=== PATIENT | female | born 1935 ===

== ENCOUNTER 2019-07-02 16:15 | Outpatient (CLI) | payer MEDICARE ==
--- NOTE | 2019-07-02 17:08 | RAD ---
XR BONE SURVEY ADULT STANDARD: 07/02/19 HISTORY: Multiple myeloma. FINDINGS/IMPRESSION: Radiographs of the skull, cervical spine, thoracic spine, lumbar spine, arms, forearms, thighs and le gs were obtained. Multiple lytic lesions consistent with multiple myeloma is seen in the skull and the left humerus. Th ere is a lucency in the body of L4 which most likely represents overlying bowel gas. There is grade I anterolisthesis of L4 over L5. There are degenerative changes in the spine. There ar e postop changes and metallic hardware in the distal right radius. Questionable lucencies are also seen in the right proximal femur. POS: KIAH
== END 2019-07-02 16:16 | disposition home or self-care (01) ==
LOC: BICRAD 16:15
PROVIDERS: ATTEND Internal Medicine Hematology & Oncology
DX: C90.01 Multiple myeloma in remission (principal)
CPT/HCPCS: 77075

== ENCOUNTER 2019-07-27 10:43 | Outpatient (CLI) | payer MEDICARE ==
--- NOTE | 2019-07-30 15:02 | RAD ---
Modified Barium Swallow CLINICAL HISTORY: Dysphagia, oropharyngeal phase; feeding difficulties FINDINGS: The examination is performed under real-time fluoroscopy under guidance of the speech ther apy department. Total fluoroscopic time was 14 seconds. There are 4 separate episodes of flash tracheal penetration with thin barium liquids. No episodes of tracheal aspiration were demonstrated. IMPRESSION: Episodes of tracheal penetration with thin barium liquids only. No episodes of tracheal a spiration. Reference speech pathology report for further details.
== END 2019-07-27 10:44 | disposition home or self-care (01) ==
PROVIDERS: ATTEND Family Medicine
DX: R13.12 Dysphagia, oropharyngeal phase (principal); R63.3 Feeding difficulties
CPT/HCPCS: 74230

== ENCOUNTER 2020-06-12 05:47 | Inpatient (IN) | payer MEDICARE ==
[2020-06-12 06:08] LABS: #Basophils 0.1 thou/uL (0.0-0.2); #Lymphocytes 1.3 thou/uL (1.20-3.40); #Monocytes 0.5 thou/uL (0.11-0.59); #Neutrophils 7.8 thou/uL (1.40-6.50); %Basophils 0.9 % (0.0-1.0); %Eosinophils 0.5 % (0.0-10.0); %Lymphocytes 13.2 % (21.0-51.0); %Monocytes 5.3 % (0.0-10.0); %Neutrophils 80.1 % (42.0-75.0); Hemoglobin 11.3 g/dL (12.0-16.0); Mean Corpuscular HGB CONC 33.5 g/dL (32.0-36.0); Mean Corpuscular Hemoglobin 32.8 pg (27.0-31.0); Mean Corpuscular Volume 97.8 fL (78.0-98.0); Mean Platelet Volume 7.5 fL (7.4-10.4); Platelet Count 218 thou/uL (130-400); RBC Distribution Width 14.9 % (11.5-14.5); Red Blood Cell (RBC) Count 3.43 mill/uL (4.20-5.40); White Blood Cell (WBC) Count 9.8 thou/uL (4.8-10.8)
[2020-06-12] MEDS ORDERED: Midazolam HCl 5 mg/ml Vial ONE (06:11)
[2020-06-12] MEDS ORDERED: fentaNYL Citrate/PF 2,000 MCG in Sodium Chloride 0.9% 60 ML IV SCH ×2 (06:15→09:00)
[2020-06-12 06:26] LABS: Anion Gap 18 mmol/L (10-20); BUN (Urea Nitrogen) 46 mg/dL (9.8-20.1); Calc. Creatinine Clearance 0 mL/min (70-130); Carbon Dioxide 14 mmol/L (23-31); Chloride 112 mmol/L (98-107); Estimated GFR-MDRD 54; Potassium 4.2 mmol/L (3.5-5.1); Sodium 140 mmol/L (136-145)
[2020-06-12 06:27] LABS: ALT (SGPT) 24 U/L (8-55); AST (SGOT) 24 U/L (5-34); Albumin 3.1 g/dL (3.4-4.8); Alkaline Phosphatase 42 U/L (40-110); Bilirubin, Total 0.7 mg/dL (0.2-1.2); Calcium 7.9 mg/dL (7.8-10.44); Glucose 135 mg/dL (83-110); Protein, Total 6.1 g/dL (6.0-8.3)
[2020-06-12 06:43] LABS: PTT 24.4 sec (22.9-36.1)
[2020-06-12 06:44] LABS: INR-International Normal Ratio 1.2; Prothrombin Time 14.9 sec (12.0-14.7)
[2020-06-12 06:53] LABS: CKMB 1.1 ng/mL (0-6.6)
[2020-06-12 07:12] LABS: Bacteria/HPF None Seen HPF (None Seen); Bilirubin Negative (Negative); Blood, Urine 1+ (Negative); Clarity Clear (Clear); Glucose, Urine (Dipstick) Normal (Negative); Ketone, Urine Negative (Negative); Leukocyte Negative Leu/uL (Negative); Nitrite Negative (Negative); Protein, Urine (Dipstick) 30 mg/dL (Neg-Trace); Specific Gravity, Urine 1.017 (1.002-1.036); Squamous Epithelial None Seen HPF (0-3); Urobilinogen Normal mg/dL (Less than 2); WBC/HPF 0-3 HPF (0-3); pH, Urine 6.5 (5.0-9.0)
[2020-06-12] MEDS ORDERED: Vancomycin 1 GM/200 ML BAG ONE (07:18)
[2020-06-12] MEDS ORDERED: Cefepime 2 GM VIAL ONE (07:18)
--- NOTE | 2020-06-12 07:25 | CT ---
Brain CT without IV contrast: Emergency after exam 6:36 AM 06/12/2020 This a final report Atrophy and chronic white matter ischemic change without mass or bleed. Multiple circumscribed lucencies within the skull with malignant or hematologic possibilities certain ly of concern This report agrees with the preliminary report.
[2020-06-12] MEDS ORDERED: Propofol 1,000 MG/100 ML VIAL IV ONE (07:41)
--- NOTE | 2020-06-12 07:56 | RAD ---
Chest one view HISTORY: Chest pain. COMPARISON: 01/14/2012. FINDINGS: Cardiac silhouette is magnified by projection. Pulmonary vasculature is unremarkable. Mediastinum is midline. Tip of an endotracheal catheter is at the level of the clavicular heads. Naso gastric tube descends to the stomach. Calcification within the aorta. Lungs are hyperinflated. Vertically oriented linear opacity at each apex favored to represent parench ymal scarring. No lobar consolidation or evidence of pneumothorax. Defibrillator patch overlies the right chest and left upper quadrant abdomen. IMPRESSION : Endotracheal catheter and nasogastric tube in good radiographic position. Pulmonary hyperinflation. No acute process is apparent. Atherosclerosis.
[2020-06-12 07:58] LABS: SARS-CoV-2 NAA Rapid Test Not Detected (NotDetected)
[2020-06-12] MEDS ORDERED: Propofol 1,000 MG/100 ML VIAL IV PRN (09:00)
[2020-06-12] MEDS ORDERED: Propofol BOLUS 1,000 MG/100 ML VIAL IV PRN (09:00)
[2020-06-12] MEDS ORDERED: Fentanyl BOLUS 250 ML IVPB PRN (09:00)
[2020-06-12] MEDS ORDERED: Lorazepam 2 MG/ML VIAL SLOW IVP PRN (09:00)
[2020-06-12] MEDS ORDERED: DISCONTINUE PREVIOUS NARCOTIC PAIN MEDICATIONS AND BENZODIAZEPINES FS SCH (09:00)
[2020-06-12] MEDS ORDERED: Morphine 2 MG/ML VIAL SLOW IVP PRN (09:00)
[2020-06-12] MEDS ORDERED: Dextrose 5 % And 0.9 % NaCl 1,000 ML IV SCH (09:00)
[2020-06-12] MEDS ORDERED: Nitroglycerin 0.4 MG TAB (25 Tab Bottle) SL PRN (09:09)
[2020-06-12] MEDS ORDERED: Dextrose 5% in Water 1,000 ML IV PRN (09:11)
[2020-06-12] MEDS ORDERED: Dextrose 50% Abboject 50 ML SYRINGE SLOW IVP PRN (09:11)
[2020-06-12] MEDS ORDERED: Mag-Al 1200 mg/1200 mg/30 ML UDCUP PO PRN (09:12)
[2020-06-12] MEDS ORDERED: Milk Of Magnesia 30 ML UDCUP PO PRN (09:12)
[2020-06-12] MEDS ORDERED: Bisacodyl 10 MG SUPP PR PRN (09:12)
[2020-06-12] MEDS ORDERED: Ventilator Sedation Protocol 1 EACH FS SCH (09:15)
[2020-06-12] MEDS ORDERED: Sodium Bicarbonate 150 MEQ in Dextrose 5% in Water 1,000 ML IV SCH (09:15)
[2020-06-12] MEDS ORDERED: Vancomycin 1 GM in Premix Bag 1 BAG IVPB SCH (09:15)
[2020-06-12] MEDS ORDERED: Enoxaparin Sodium 40 MG/0.4 ML SYRINGE SC SCH (09:15)
--- NOTE | 2020-06-12 09:36 | CON ---
DATE OF CONSULTATION: HISTORY: Ms. Barton is an 85-year-old female who was brought in to the hospital by her via EMS after she was found down at home. She apparently was appropriate 10 minutes prior to the event when he found her in the bathroom, found down. She eventually intubated. She has known history of dementia, according to the . Reviewed some old medical records with the patient. PAST MEDICAL HISTORY: Hypertension, hypothyroidism. PREVIOUS SURGERIES: Cholecystectomy, wrist surgery, cataract surgery. ALLERGIES: PENICILLIN. MEDICINE: Unknown at this stage. PHYSICAL EXAMINATION: GENERAL: is en-route, will be talking to the at length. VITAL SIGNS: Pulse 83, blood pressure 130/80, sats 100%, respirations 17. CHEST: No wheezing. No crackles. CARDIAC: Normal S1, S2. No masses. LABORATORY DATA: White count 9000, H and H 11/33, platelet count 218. Lytes are normal. Urine is unremarkable. Chest x-ray was normal. CT head normal. Coronavirus serology was negative. IMPRESSION: 1. Found down. Encephalopathy, rule out cerebrovascular accident. 2. Respiratory failure. 3. History of dementia. PLAN: We will try and get additional history from the as he arrives. Serial exam input from Neurology are recommended. Basic support. 45 minutes critical time. Job ID: [id number]
[2020-06-12] MEDS ORDERED: Acetaminophen 650 MG Suppository PR PRN (11:03)
[2020-06-12] MEDS ORDERED: Acetaminophen 650 MG/20.3 ML UDCUP PO PRN (11:05)
[2020-06-12 11:16] LABS: Acetaminophen Less than 6.0 mcg/mL (10.0-30.0); Alcohol Less than 10 mg/dL (Less than 10); Salicylate Less than 8.0 mg/dL (15.0-30.0)
[2020-06-12 11:17] LABS: Amphetamine Not Detected (NotDetected); Barbiturates Screen Not Detected (NotDetected); Benzodiazepine Screen Not Detected (NotDetected); Cocaine Metabolite Screen Not Detected (NotDetected); Medtox Control Line Valid? VALID (VALID); Medtox Reader # READER 4; Methadone Not Detected (NotDetected); Methamphetamine Not Detected (NotDetected); Opiate Screen Not Detected (NotDetected); Oxycodone Screen Not Detected (NotDetected); Phencyclidine (PCP) Not Detected (NotDetected); THC/Cannabinoid Screen Not Detected (NotDetected); Tricyclic Screen Not Detected (NotDetected)
[2020-06-12 11:19] LABS: Lactic Acid 2.7 mmol/L (0.5-2.2)
[2020-06-12 11:30] LABS: Anion Gap 17 mmol/L (10-20); BUN (Urea Nitrogen) 41 mg/dL (9.8-20.1); Calc. Creatinine Clearance 41 mL/min (70-130); Calcium 7.8 mg/dL (7.8-10.44); Carbon Dioxide 14 mmol/L (23-31); Chloride 111 mmol/L (98-107); Estimated GFR-MDRD 61; Glucose 100 mg/dL (83-110); Sodium 138 mmol/L (136-145)
[2020-06-12 11:31] LABS: CK (CPK) 95 U/L (29-168); CRP (Inflammatory) 1.12 mg/dL (= or < 0.5); Lipase 56 U/L (8-78); Magnesium 2.6 mg/dL (1.6-2.6); Phosphorus 2.5 mg/dL (2.3-4.7)
[2020-06-12 11:43] LABS: CKMB 3.4 ng/mL (0-6.6)
[2020-06-12 12:16] LABS: Thyroid Stimulating Hormone 0.7634 uIU/mL (0.35-4.94)
[2020-06-12] MEDS ORDERED: Aspirin 325 MG TAB PER TUBE SCH (12:45)
[2020-06-12] MEDS ORDERED: hydrALAZINE 20 MG/ML VIAL SLOW IVP PRN (13:01)
[2020-06-12] MEDS: Sodium Bicarbonate 150 MEQ in Dextrose 5% in Water 1,000 ML IV SCH (13:55)
--- NOTE | 2020-06-12 14:31 | CON ---
DATE OF CONSULTATION: 06/12/2020 CONSULTING PHYSICIAN: Hospitalist Services. IMPRESSION: 1. Probable stroke with left-sided paralysis. 2. Possible seizure, unwitnessed. PLAN: 1. Continue aspirin. 2. MRI of the brain and MRA of the carotids tomorrow. 3. Monitor for further seizure activity. HISTORY OF PRESENT ILLNESS: Ms. Barton is an 85-year-old woman with past history of multiple myeloma. She also has a history of dementia. Her found her on the floor unresponsive with snoring respirations. He called EMS and had her brought to the emergency room. Initial CT scan of the brain showed some lytic lesions in the skull, but the brain otherwise looked unremarkable. Her lab work was only remarkable for elevated lactic acid. Prolactin was not done. The patient has been intubated and placed on ventilatory support. She has been moved to the intensive care unit. No further unusual activity has occurred. The patient started to regain consciousness. Her denies any past history of strokes or seizures. PAST HISTORY: Multiple myeloma. ALLERGIES: PENICILLIN. SOCIAL HISTORY: She lives at home with her . She is fairly independent. She does not smoke or drink. FAMILY HISTORY: Noncontributory. REVIEW OF SYSTEMS: Could not be obtained due to her lack of responsiveness. MEDICATIONS: List was reviewed. PHYSICAL EXAMINATION: GENERAL: She is a reasonably well-nourished elderly lady, lying in bed quietly. HEENT: Pupils are equal. Conjunctivae are clear. Eyes are conjugate. She is orally intubated. Cranium, normocephalic and atraumatic. NECK: Supple. No lymphadenopathy noted. CHEST: Clear. ABDOMEN: Soft. EXTREMITIES: No cyanosis or edema. SKIN: Clear. NEUROLOGIC: She would open her eyes to stimulation, but would not follow any commands. Her doll's eye maneuver was intact. There was no obvious facial asymmetry. There was reduced movement of the left arm and leg. Her plantar response was upgoing on the left and equivocal on the right. She responded to stimulation bilaterally. LABORATORY DATA: EKG shows a sinus rhythm. SUMMARY: It is an elderly lady who presented in unresponsive state with an elevated lactic acid. She appears to have a left hemiparesis, bit suspicious she may have had a stroke with a secondary seizure. Aspirin has been started. Her workup can continue. Job ID: [id number]
--- NOTE | 2020-06-12 15:33 | PDOC.HHP ---
Hospitalist HPI - History of Present Illness Altered mentation History of Present Illness: Patient is a 85-year-old female with dementia, hypertension and multiple myeloma in the past was brought in to the emergency room around 6 AM with unresponsiveness. Patient was found unresponsive in the bathroom. called 911. Patient was at baseline 10 minutes prior to this event. Her GCS was 3 with poor respiratory effort. She did not respond to Narcan. She was subsequently intubated after ER arrival due to worsening mentation. She also received empiric antibiotics in the emergency room. History is limited due to current mentation. Medical History: Multiple myeloma not having achieved remission, Essential hypertension, Acquired hypothyroidism. Surgical History: Cholecystectomy 02/2006. Hospitalization/Major Diagnostic Procedure: pleurisy 1967. Family History: Father: , Alzheimer's, diagnosed with Mental Illness. Mother: . Siblings: alive. Children: alive. 1 son(s) , 1 daughter(s) - healthy. . Social History: [employer]: Smoking Are you a: Non-Smoker No Alcohol . No Drugs . No Sexual activity . No Occupation, Retired. Marital status: . Caffeine use: Yes, 1-2 cups, Coffee. ED Course: MEDICATION ADMINISTRATION SUMMARY [place] Jun 12, 2020 15:32 Drug Name Dose Ordered Route Status Time *vancomycin intravenous 1 g IV Piggy Back Given 07:57 06/12/2020 *Diprivan 5 mcg/kg/min IV Fluid Infusion Given 07:45 06/12/2020 cefepime injection 2 g IV Piggy Back Given 07:15 06/12/2020 *fentaNYL (PF) injection 1 mcg/kg/hr IV Fluid Infusion Given 06:55 06/12/2020 Versed injection 4 mg IV Push Given 06:14 06/12/2020 *succinylcholine-sod Cl,iso(PF) 100 mg IV Push Given 05:52 06/12/2020 *Amidate 20 mg IV Push Given 05:51 06/12/2020 VITAL SIGNS [place] Jun 12, 2020 05:50 JORDY Miguel Jordan BP: 157/107, MAP: 123, Pulse: 100, Resp: 15, Temp: 98.3 (Rectal), Pain: UTR, O2 sat: 100 on (Bag Valve Mask), Time: 06/12/2020 05:50. Hospitalist ROS - Review of Systems ROS unobtainable: due to endotracheal tube - Medication Medications: Medication Instructions Recorded Confirmed Type Donepezil HCl [Aricept] 10 mg PO HS 06/12/20 06/12/20 History Levothyroxine Sodium [Synthroid] 50 mcg PO DAILY 06/12/20 06/12/20 History Meloxicam 15 mg PO DAILY 06/12/20 06/12/20 History Melphalan 2 mg PO 06/12/20 History Potassium Chloride [Klor-Con 10] 10 meq PO BID 06/12/20 06/12/20 History Valsartan [Diovan] 80 mg PO DAILY 06/12/20 06/12/20 History predniSONE 20 mg PO BID-WM 06/12/20 06/12/20 History Allergies Penicillins Allergy (Verified 06/12/20 09:08) Hives - Exam General Appearance: ill appearing General - other findings: On mechanical ventilation Eye: PERRL, anicteric sclera Eye - other findings: Pupils 2 mm bilaterally with sluggish response to light ENT: normocephalic atraumatic, no oropharyngeal lesions Neck: supple, no JVD, no thyromegaly, no lymphadenopathy Heart: RRR, no gallops, no rubs, normal peripheral pulses Respiratory: no wheezes, no rales, normal chest expansion, rhonchi Gastrointestinal: soft, normal bowel sounds, no guarding, no rigidity Extremities: no cyanosis, no clubbing Neurological - other findings: Left-sided flaccidity, plantars are upgoing on the left. Musculoskeletal: generalized weakness Psychiatric - other findings: Neuro/psych exam limited due to current mentation Hospitalist Results - Labs Result Diagrams: 06/12/20 06:01 06/12/20 10:43 Lab results: WBC 9.8 thou/uL (4.8-10.8) 06/12/20 06:01 Hgb 11.3 g/dL (12.0-16.0) L 06/12/20 06:01 Hct 33.6 % (36.0-47.0) L 06/12/20 06:01 MCV 97.8 fL (78.0-98.0) 06/12/20 06:01 Plt Count 218 thou/uL (130-400) 06/12/20 06:01 Neutrophils % 80.1 % (42.0-75.0) H 06/12/20 06:01 Sodium 138 mmol/L (136-145) 06/12/20 10:43 Potassium 4.0 mmol/L (3.5-5.1) 06/12/20 10:43 Chloride 111 mmol/L (98-107) H 06/12/20 10:43 Carbon Dioxide 14 mmol/L (23-31) L 06/12/20 10:43 BUN 41 mg/dL (9.8-20.1) H 06/12/20 10:43 Creatinine 0.88 mg/dL (0.6-1.1) 06/12/20 10:43 Glucose 100 mg/dL (83-110) 06/12/20 10:43 Lactic Acid 2.7 mmol/L (0.5-2.2) H 06/12/20 10:43 Calcium 7.8 mg/dL (7.8-10.44) 06/12/20 10:43 Total Bilirubin 0.7 mg/dL (0.2-1.2) 06/12/20 06:00 AST 24 U/L (5-34) 06/12/20 06:00 ALT 24 U/L (8-55) 06/12/20 06:00 Alkaline Phosphatase 42 U/L (40-110) 06/12/20 06:00 Creatine Kinase 95 U/L (29-168) 06/12/20 10:43 CK-MB (CK-2) 3.4 ng/mL (0-6.6) 06/12/20 10:43 Troponin I 0.492 ng/mL (< 0.028) H* 06/12/20 10:43 C-Reactive Protein 1.12 mg/dL (= or < 0.5) H 06/12/20 10:43 B-Natriuretic Peptide 174.5 pg/mL (0-100) H 06/12/20 13:31 Serum Total Protein 6.1 g/dL (6.0-8.3) 06/12/20 06:00 Albumin 3.1 g/dL (3.4-4.8) L 06/12/20 06:00 Lipase 56 U/L (8-78) 06/12/20 10:43 Urine Ketones Negative mg/dL (Negative) 06/12/20 06:03 Urine Blood 1+ (Negative) A 06/12/20 06:03 Urine Nitrite Negative (Negative) 06/12/20 06:03 Ur Leukocyte Esterase Negative Dave/uL (Negative) 06/12/20 06:03 Urine RBC 11-20 HPF (0-3) A 06/12/20 06:03 Urine WBC 0-3 HPF (0-3) 06/12/20 06:03 Ur Squamous Epith Cells None Seen HPF (0-3) 06/12/20 06:03 Urine Bacteria None Seen HPF (None Seen) 06/12/20 06:03 Abnormal Lab Results - Last 48 hrs 06/12/20 05:53: Troponin I 0.034 H 06/12/20 06:00: Chloride 112 H, Carbon Dioxide 14 L, BUN 46 H, Albumin 3.1 L, Albumin/Globulin Ratio 1.0 L 06/12/20 06:01: Lactic Acid 3.3 H 06/12/20 06:01: RBC 3.43 L, Hgb 11.3 L, Hct 33.6 L, MCH 32.8 H, RDW 14.9 H, Neutrophils % 80.1 H, Lymphocytes % 13.2 L, Neutrophils # 7.8 H 06/12/20 06:03: Urine Protein 30 A, Urine Blood 1+ A, Urine RBC 11-20 A 06/12/20 06:15: PT 14.9 H 06/12/20 10:43: Lactic Acid 2.7 H 06/12/20 10:43: C-Reactive Protein 1.12 H 06/12/20 10:43: Troponin I 0.492 H* 06/12/20 10:43: Chloride 111 H, Carbon Dioxide 14 L, BUN 41 H 06/12/20 10:43: Salicylates Less than 8.0 L, Acetaminophen Less than 6.0 L 06/12/20 13:31: B-Natriuretic Peptide 174.5 H - EKG Interpretation EKG: Sinus rhythm with PACreviewed by me - Radiology Interpretation CT scan - head Status: image reviewed by me Additional Comment: Atrophy and chronic white matter ischemic change without mass or bleed. Multiple circumscribed lucencies within the skull with malignant or hematologic possibilities certain ly of concern. Negative for acute CVA Chest x-ray Status: image reviewed by me Additional Comment: Negative for infiltrate Hospitalist H&P A/P - Plan Plan: Encephalopathy with acute respiratory failure suspected due to acute CVA Dementia Dehydration with lactic acidosis Type II myocardial infarction CKD stage II Vitamin B12 deficiency Hypertension History of multiple myeloma Hypothyroidism Chronic anemia suspected due to nutritional deficiency Plan: Patient will be monitored in the intensive care unit. We will continue mechanical ventilation. Consult critical care. Neurology consultation. Start aspirin. Will get echocardiogram and carotid Doppler. Stroke team. DVT prophylaxis with Lovenox. GI prophylaxis. Empiric antibiotics. IV fluids. Replace vitamin B12. Serial troponins. A.m. labs. Supportive care. Restart home medications once verified. Full code for now. Primary decision maker is Berkley Meneses [phone]. Will consult palliative care.
--- NOTE | 2020-06-12 15:44 | ULT ---
EXAM: Carotid vascular duplex with color and spectral Doppler imaging: HISTORY: CVA COMPARISON: None FINDINGS: Right ICA: PSV: 61 cm/s EDV: 8 cm/s ICA/CCA ratio: 0.7 Left ICA: PSV: 27 cm/s EDV: 13 cm/s ICA/CCA ratio: 0.4 This is a very abnormal waveform in the right ICA and appears to be retrograde filling from the ECA d ue to total occlusion of the left CCA. Very limited vertebral flow evaluation.. 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 The dairy technologist describes this large int raluminal thrombus to show some back and flow motion suggesting that it may be acute rather than chronic. Minimal flow in the left ICA which appears to be retrograde flow from the ECA. Findings were discussed with the patient's nurse Maddie in the CCU at 3:43 PM CODE CR
--- NOTE | 2020-06-12 15:58 | PDOC.EVN ---
Event Note - Event Note Event Note: Carotid ultrasound showed questionable thrombus in the left common carotid. Case discussed with cardiovascular Dr. Ibanez. Dr. Ibanez recommended CT angiogram of the head and neck tomorrow morning. Continue aspirin. I attempted to call the family with no answer.
[2020-06-12] MEDS ORDERED: Ondansetron PF 4 MG/2 ML Vial IVP PRN (16:03)
[2020-06-12] MEDS ORDERED: Ondansetron ODT 4 MG TAB PO PRN (16:03)
[2020-06-12] MEDS ORDERED: Senokot S 8.6-50 MG TAB PO PRN (16:03)
--- NOTE | 2020-06-12 16:58 | CON ---
DATE OF CONSULTATION: HISTORY OF PRESENT ILLNESS: This is an 85-year-old female with some early dementia and multiple myeloma, receiving chemotherapy by Dr. Villalpando, who was found down at home by her this morning. She was admitted to the hospital, where a CT scan of the brain showed no evidence of trauma or bleeding. She was intubated either by EMS or in the emergency room, but gradually awakened through the course of the day such that she was spontaneously moving in the ICU. Upon awakening, she was moving her right side, but not her left side and appeared to have some left-sided neglect. Carotid ultrasound appeared to show left common carotid thrombus with occlusion and filling of her ICA via her ECA. PAST MEDICAL HISTORY: Otherwise was negative for any cardiac problems. She does have hypertension, which is treated. She had a recent a Medicare physical last week, and apart from the dementia, seemed to be doing relatively well. SOCIAL HISTORY: She was independent at home as far as ambulation goes. She is and accompanied by her , who lives with her at home. LABORATORY DATA: Her laboratory values did show some slight lactic acidosis with perhaps some mild dehydration. She has reportedly not been eating well at home for the past two weeks according to the and daughter. Her serum albumin was somewhat low on admission to go along with that story. Her troponin I also was slightly elevated at 0.4. PHYSICAL EXAMINATION: NECK: She has no carotid bruits. LUNGS: Clear to auscultation. CARDIAC: She has some PACs on the monitor, but no murmurs on auscultation. EXTREMITIES: I do not appreciate any pedal pulses. The both feet are pink, and her right foot is moving quite a bit while she is on the ventilator. ASSESSMENT AND PLAN: At this time, she appears to have had a significant right hemispheric stroke with findings of thrombus in her left common carotid artery. Cardiac echo has been done, but is pending. Perhaps a CTA of the neck and head would be beneficial, but at this time, given her dense stroke, I do not imagine there would be any intervention at this time for findings. I have discussed this with the at bedside, and then I have spoken with the daughter by phone. Job ID: [id number]
[2020-06-12 18:15] LABS: Anion Gap 14 mmol/L (10-20); BUN (Urea Nitrogen) 37 mg/dL (9.8-20.1); Calc. Creatinine Clearance 49 mL/min (70-130); Carbon Dioxide 22 mmol/L (23-31); Chloride 105 mmol/L (98-107); Estimated GFR-MDRD 75; Glucose 121 mg/dL (83-110); Potassium 3.5 mmol/L (3.5-5.1); Sodium 137 mmol/L (136-145)
[2020-06-12 18:47] LABS: CKMB 4.4 ng/mL (0-6.6)
[2020-06-12] MEDS ORDERED: Cyanocobalamin 1000 MCG/ML VIAL IM SCH (21:00)
[2020-06-12] MEDS ORDERED: Atorvastatin Calcium 40 MG TAB PO SCH (21:00)
[2020-06-12] MEDS ORDERED: Famotidine/PF 20 mg/2ml Vial SLOW IVP SCH (21:00)
[2020-06-12] MEDS ORDERED: Famotidine 40 MG/5 ML Oral Suspension PER TUBE SCH (21:00)
[2020-06-13] MEDS: Sodium Bicarbonate 150 MEQ in Dextrose 5% in Water 1,000 ML IV SCH ×2 (00:17→04:01)
[2020-06-13 03:45] LABS: Hemoglobin 12.1 g/dL (12.0-16.0); Mean Corpuscular Hemoglobin 32.4 pg (27.0-31.0); Mean Corpuscular Volume 98.2 fL (78.0-98.0); Mean Platelet Volume 7.8 fL (7.4-10.4); Platelet Count 138 thou/uL (130-400); Red Blood Cell (RBC) Count 3.73 mill/uL (4.20-5.40); White Blood Cell (WBC) Count 15.1 thou/uL (4.8-10.8)
[2020-06-13 03:59] LABS: Anion Gap 15 mmol/L (10-20); BUN (Urea Nitrogen) 28 mg/dL (9.8-20.1); Calc. Creatinine Clearance 48 mL/min (70-130); Calcium 7.1 mg/dL (7.8-10.44); Carbon Dioxide 23 mmol/L (23-31); Cardiac Risk 3.6 (Less than 4.5); Chloride 102 mmol/L (98-107); Cholesterol 112 mg/dl (< 200 Desired); Estimated GFR-MDRD 74; Glucose 108 mg/dL (83-110); HDL Cholesterol 31 mg/dL (>60 Neg Risk); LDL Cholesterol, Calculated 67 mg/dL; Magnesium 2.4 mg/dL (1.6-2.6); Phosphorus 2.2 mg/dL (2.3-4.7); Potassium 3.7 mmol/L (3.5-5.1); Sodium 136 mmol/L (136-145); Triglycerides 69 mg/dL (Less than 150)
[2020-06-13 04:45] LABS: Band 8 % (5-11); Elliptocytes SLIGHT = 2-5 cells (100X) (0-1/hpf); Lymphocytes 1 % (21-51); MDiff Complete? YES; Monocytes 2 % (0-10); Neutrophil 89 % (42-75)
[2020-06-13 04:46] LABS: CKMB 3.5 ng/mL (0-6.6)
[2020-06-13 07:26] LABS: Actual Bicarbonate (HCO3a) 26.5 mEq/L (22-28); Base Excess (BEa) 4.9 mEq/L (-2.0 to +3.0); CO2 Tension 28.8 mmHg (35.0-45.0); Calcium, Ionized (arterial) 0.94 mmol/L (1.12-1.30); Carboxyhemoglobin (COHb) 0.2 gm% (0.0-3.0); Hemoglobin (Hb) 10.5 g/dL (12.0-16.0); O2 Tension (PaO2), arterial 110.3 mmHg (> 60.0); Potassium - ABG Lab 2.82 mmol/L (3.70-5.30)
--- NOTE | 2020-06-13 07:50 | PRG ---
DATE OF SERVICE: 06/13/2020 The patient had her CTA this morning, and I have reviewed it. Unfortunately, the aortic arch was not included in this study, which is somewhat atypical. The patient demonstrates thrombus occluding her left common carotid artery in its entirety except for very distally where external and internal communicate. The distal right innominate artery including the origin of the subclavian and common carotid artery had intraluminal thrombus. Possible causes include: 1. Embolus from the heart and unfortunately the cardiac echo done yesterday is not available for viewing and there is no report. 2. Aortic arch dissection with involvement of the great vessels, which I think is unlikely. 3. Although the patient was COVID negative initially, this could be spontaneous hypercoagulable thrombus. Intervention would likely involve multiple embolectomies of the left common, right common, and right subclavian arteries, probably through a brachial approach. Whether this is considered, I think depends on echo report, discussion with the family, and progress of the patient overnight. Job ID: [id number]
--- NOTE | 2020-06-13 07:56 | CT ---
PRELIMINARY REPORT/[facility]/EMERGENCY AFTER HOURS PROCEDURE This report was discussed with Sarabjit Davis MD by Killian Morfin on Jun 13, 2020 04:26:00 CS T. Addendum electronically signed by Killian Morfin on June 13, 2020 4:26:28 AM FISH HATCHERY MAN EXAM: CTA Head and Neck with Intravenous Contrast. CT Head without Contrast. CLINICAL HISTORY: F/U ACUTE CVA TECHNIQUE: Axial CTA images of the head and neck performed with intravenous contrast. MIP reconstructed images w ere created and reviewed. Axial computed tomography images of the head/brain performed without intravenous contrast. Note: Per PQRS, the description of internal carotid artery percent stenosis, including 0 percent or n ormal exam, is based on [place] Symptomatic Carotid Endarterectomy Trial (NASCET) criteria. CONTRAST: With; ISOVUE 370,100mL COMPARISON: None provided. FINDINGS: CT HEAD: BRAIN: Hypodensity in the right MCA territory is compatible with evolution of acute infarct. VENTRICLES: No hydrocephalus. ORBITS: The orbits are unremarkable. SINUSES AND MASTOIDS: The paranasal sinuses and mastoid air cells are clear. CTA NECK: Filling defect in the brachiocephalic artery. COMMON CAROTID ARTERIES Occlusion of the left common carotid artery. INTERNAL CAROTID ARTERIES No stenosis by NASCET criteria. No dissection or occlusion. Left internal and external carotid arteries are patent from the level of the bifurcation. Calcified a nd noncalcified plaque at the bifurcation. ' VERTEBRAL ARTERIES No significant stenosis. No dissection or occlusion. CTA HEAD: ANTERIOR CEREBRAL ARTERIES No significant stenosis. No occlusion. No aneurysm. MIDDLE CEREBRAL ARTERIES Occlusion of the superior branch of the right MCA artery from its origin at the right MCA bifurcation . POSTERIOR CEREBRAL ARTERIES No significant stenosis. No occlusion. No aneurysm. BASILAR ARTERY No significant stenosis. No occlusion. No aneurysm. OTHER: SOFT TISSUES Spiculated nodule at the left lung apex measuring up to 1.5 cm. Multiple additional nodules at the bilateral lung apices to size up to 8 mm as well as reticulonodula r and multiple micronodules. Findings may be neoplastic and/or infectious. BONES No acute osseous abnormality. Again noted are multiple calvarial lucencies. MISCELLANEOUS: Endotracheal and enteric tubes in place. IMPRESSION: Hypodensity in the right MCA territory is compatible with evolution of acute infarct. Occlusion of the superior branch of the right MCA artery from its origin at the right MCA bifurcation . Filling defect in the brachiocephalic artery compatible with thrombus. Thrombus occludes the left co mmon carotid artery with a patent internal and external carotid arteries. Spiculated nodule at the left lung apex measuring up to 1.5 cm. Multiple additional nodules at the b ilateral lung apices to size up to 8 mm as well as reticulonodular and multiple micronodules. Findings may be neoplastic and/or infectious. Again noted are multiple calvarial lucencies which may be neoplastic in origin.. ELECTRONICALLY SIGNED BY: Kimberly Lopez MD Jun 13, 2020 4:18:32 AM FISH HATCHERY MAN This report is intended for review by the ordering physician only, in accordance of law. If you recei ve this report in error, please call [facility] at [phone]. FINAL REPORT Emergent after hours CT angiogram head and neck with IV contrast and 3-D reconstructions Emergent after hours noncontrast CT head HISTORY: Follow-up acute CVA. COMPARISON: Noncontrast CT head 06/12/2020. IMPRESSION: 1. Acute right MCA distribution infarction. 2. Acute infarction in the watershed distribution of the left MCA/INSURANCE MARKETING SPECIALIST. 3. No intraparenchymal or extra-axial hemorrhage. 4. The aortic arch and origin of the great vessels was not imaged on this examination. 5. Thrombus in the visualized innominate artery with extension of thrombus into the most proximal rig ht subclavian artery. 6. Occlusion of the left common carotid artery. 7. Atherosclerotic irregularity at the carotid artery bifurcation on the left, but there is opacifica tion of the left internal and external carotid arteries without extension of the thrombus into the left internal carotid artery. 8. Patent right internal carotid artery. 9. Occlusion of the M2 branch right middle cerebral artery. 10. Patent bilateral anterior cerebral arteries and left middle cerebral artery. 11. Left vertebral artery is dominant, but the vertebral arteries are patent bilaterally. The basilar artery and posterior cerebral arteries are patent. 12. Patchy parenchymal densities within the lungs bilaterally with several nodular densities within t he left upper lobe including a spiculated nodule in the left lung apex measuring 1.4 cm. Findings could be related to infectious or neoplastic process. 13. Several lytic lesion within the calvarium likely related to patient's history of multiple myeloma . 14. Endotracheal tube and nasogastric tube are noted in place and partially imaged. 15. Small air-fluid level right maxillary antrum. Findings are in agreement with preliminary report by [facility]. Transcribed Date/Time: 06/13/2020 8:40 AM
[2020-06-13] MEDS ORDERED: Vancomycin HCl 750 MG in Sodium Chloride 0.9% 250 ML 250 ML IVPB SCH (08:00)
--- NOTE | 2020-06-13 08:07 | PDOC.HOSPP ---
- Subjective Encounter Date: 06/13/20 Encounter Time: 08:03 Subjective: intubated, unresponcive - Objective Vital Signs & Weight: Vital Signs (12 hours) Temp Pulse Resp BP 06/13/20 06:58 95 103/69 06/13/20 06:00 16 06/13/20 04:00 98.5 F 34 H 06/13/20 02:00 12 06/13/20 00:00 99.0 F 26 H 06/12/20 22:00 41 H Weight Weight 122 lb 0.59 oz Most Recent Monitor Data Heart Rate from ECG 94 NIBP 103/69 NIBP BP-Mean 80 Respiration from ECG 15 SpO2 100 I&O: 06/12/20 06/13/20 06/14/20 06:59 06:59 06:59 Intake Total 2822.9 Output Total 591 Balance 2231.9 Result Diagrams: 06/13/20 03:06 06/13/20 03:06 Additional Labs: Accuchecks 06/13/20 06/12/20 04:04 13:21 POC Glucose 89 106 H Hospitalist ROS - Medication Medications: Active Medications Generic Name Dose Route Start Last Admin Trade Name Freq PRN Reason Stop Dose Admin Atorvastatin Calcium 40 mg 06/12/20 21:00 06/12/20 20:33 Atorvastatin Calcium 40 Mg Tab PO 40 mg HS DINA Administration Famotidine 20 mg 06/12/20 21:00 06/12/20 20:33 Famotidine 40 Mg/5 Ml Oral Suspension PER TUBE 20 mg Q24HR DINA Administration Levofloxacin 500 mg/ Device 100 mls @ 100 mls/hr 06/12/20 12:00 06/12/20 11:47 IVPB 100 mls Q24HR DINA Administration Sodium Bicarbonate 150 meq/ 1,150 mls @ 125 mls/hr 06/12/20 13:04 06/13/20 04:01 Dextrose/Water IV 1,150 mls .Q9H12M DINA Administration Propofol 1,000 mg 06/12/20 09:00 06/13/20 04:02 Propofol 1,000 Mg/100 Ml Vial IV 07/12/20 09:00 1,000 mg INF PRN Administration TO ACHIEVE GOAL RASS Protocol - Exam Neck: no JVD Heart: RRR, no murmur Respiratory - other findings: coarse BS Gastrointestinal: soft, non-distended, normal bowel sounds Extremities: no edema Hosp A/P (1) CVA (cerebral vascular accident) Code(s): I63.9 - CEREBRAL INFARCTION, UNSPECIFIED Status: Acute (2) Carotid thrombosis, left Code(s): I65.22 - OCCLUSION AND STENOSIS OF LEFT CAROTID ARTERY Status: Acute (3) Acute respiratory failure Code(s): J96.00 - ACUTE RESPIRATORY FAILURE, UNSP W HYPOXIA OR HYPERCAPNIA Status: Acute (4) Lactic acid acidosis Code(s): E87.2 - ACIDOSIS Status: Acute (5) Multiple myeloma Code(s): C90.00 - MULTIPLE MYELOMA NOT HAVING ACHIEVED REMISSION Status: Acute (6) HTN (hypertension) Code(s): I10 - ESSENTIAL (PRIMARY) HYPERTENSION Status: Acute - Plan MRI brain FU with CVS cont vent per pulmonologt cont ASA
--- NOTE | 2020-06-13 08:10 | RAD ---
EXAM: CHEST ONE VIEW HISTORY: On ventilator. Follow-up evaluation. COMPARISON: 06/12/2020 FINDINGS: Endotracheal and nasogastric tubes remain in place. Cardiac silhouette and pulmonary vasculature are within normal limits. There are increased interstitial and patchy parenchymal density seen in each upper lobe/lung apex. More focal nodular density is seen in the left lung apex with is not definitely seen on prior study. Findings could be related to infectious process. However, follow-up to complete resolution is recommended to ensure that there is not an underlying neoplastic process. Surg ical clips overlie the right upper quadrant. No other interval change. IMPRESSION: Linear and patchy parenchymal densities seen in each upper lobe/lung apex including a more nodular de nsity in the left lung apex. Findings may be related to infectious process. However, follow-up to complete resolution is recommended to ensure that there is not an underlying neoplastic process.
--- NOTE | 2020-06-13 08:28 | PRG ---
DATE OF SERVICE: 06/13/2020 Cardiac echo shows some akinesis of the right ventricle suggesting a possible right ventricular infarction. That raises the question of whether the patient could have had a DVT with a thrombus in the right ventricle with paradoxical embolus accounting for the finding on her CTA this morning. She will probably need a TRAY, and repeat CT scan of thoracic aorta to better clarify the source and current location of the clot. If aggressive intervention is to be entertained, this will have to be discussed further with family. Additionally, if the patient has a TRAY, some care with neck mobilization, placement of the TRAY will be needed to prevent inadvertent dislodgement of a clot from her carotid arteries. In any event, I do not think any surgical intervention would be entertained today given that the patient probably needs to be past the 48-hour mehnaz from her stroke to evaluate how severe the edema will be as it could worsen if we restore blood flow to the left carotid system as well as the right carotid system. Job ID: [id number] MTDD
[2020-06-13 08:33] LABS: Puncture Site LBA; pH, Arterial 7.58 (7.35-7.45)
[2020-06-13] MEDS ORDERED: Aspirin 325 MG TAB PER TUBE SCH (09:00)
[2020-06-13] MEDS ORDERED: Cyanocobalamin (Vitamin B-12) 1,000 MCG TAB PO SCH (09:00)
[2020-06-13] MEDS ORDERED: Aspirin 300 MG Suppository PR SCH (09:00)
[2020-06-13] MEDS ORDERED: Aspirin 325 mg Enteric Coated Tablet PO SCH (09:00)
[2020-06-13] MEDS ORDERED: FLU VACC QS2020-21(65YR UP)/PF 240 MCG/0.7 ML SYRINGE IM ONE (09:00)
[2020-06-13] MEDS ORDERED: Enoxaparin Sodium 40 MG/0.4 ML SYRINGE SC SCH (09:00)
--- NOTE | 2020-06-13 09:17 | PRG ---
DATE OF SERVICE: 06/13/2020 SUBJECTIVE: Bibi Barton remains intubated in the vent on limited low-dose Diprivan. OBJECTIVE: VITAL SIGNS: Pulse 95, blood pressure 140/67, sats 100%, respirations 18. CHEST: No wheezing. No crackles. CARDIAC: Normal S1 and S2. No gallops. ABDOMEN: Soft. NEUROLOGIC: She is sedated. LABORATORY DATA: White count 15,000, H and H 12 and 36, and platelet count 138. A pO2 of 110, pCO2 , rate of 12 . Lytes are normal. Troponin slightly elevated. ASSESSMENT: Respiratory failure, cerebrovascular accident, and left carotid thrombus. PLAN: Await further input from Neurology. Pulmonary lam, continue vent support. Supportive care. Avoid excessive sedation. I would discontinue vancomycin. Continue Levaquin as ordered. Pulmonary is going to follow. One-half hour of critical care time. Job ID: [id number]
--- NOTE | 2020-06-13 09:56 | PDOC.FMACP ---
Advance Care Planning - Problem (1) Palliative care encounter Status: Acute Code(s): Z51.5 - ENCOUNTER FOR PALLIATIVE CARE (2) Acute respiratory failure Status: Acute Code(s): J96.00 - ACUTE RESPIRATORY FAILURE, UNSP W HYPOXIA OR HYPERCAPNIA (3) CVA (cerebral vascular accident) Status: Acute Code(s): I63.9 - CEREBRAL INFARCTION, UNSPECIFIED (4) Carotid thrombosis, left Status: Acute Code(s): I65.22 - OCCLUSION AND STENOSIS OF LEFT CAROTID ARTERY (5) HTN (hypertension) Status: Acute Code(s): I10 - ESSENTIAL (PRIMARY) HYPERTENSION (6) Multiple myeloma Status: Acute Code(s): C90.00 - MULTIPLE MYELOMA NOT HAVING ACHIEVED REMISSION - Note Participants: family, palliative care Summary: Advanced Care Planning was discussed. The diagnosis, prognosis and goals of care were discussed. Appropriate forms and documentation to accomplish the goals of care were discussed. All questions were answered. The Palliative Care Team will be engaged to assist with completion of any outstanding forms that are needed.
[2020-06-13] MEDS ORDERED: Iopamidol-370 76% 500 ML 1 ML ONE (09:57)
[2020-06-13 13:23] VITALS: BMI 19.7
[2020-06-13 14:55] VITALS: BP 137/55
[2020-06-13] MEDS ORDERED: Morphine 4 MG/ML VIAL SLOW IVP SCH (15:15)
[2020-06-13] MEDS ORDERED: Scopolamine 1.5 mg/72 hour Patch TOP SCH (15:15)
[2020-06-13] MEDS ORDERED: Lorazepam 2 MG/ML VIAL SLOW IVP SCH (15:15)
--- NOTE | 2020-06-13 15:41 | DIS ---
DATE OF ADMISSION: 06/12/2020 DATE OF DISCHARGE: 06/13/2020 DISPOSITION: Discharged to hospice on 06/13/2020. FINAL DIAGNOSES: Acute encephalopathy, cerebral infarction, acute respiratory failure, lactic acidosis, hypertension. DISCHARGE MEDICINES: None. STATUS: DNAR. No restrictions on diet. No restrictions on ambulation. HOSPITAL COURSE: The patient admitted to the Hospitalist Service through [facility], having been found unresponsive on the floor. Her [place] Coma Scale was 3. Intubated in the emergency room, started on antibiotics. She has a history of myeloma, not having achieved remission; hypertension. She was placed in intensive care unit. Dr. Jere Marie, Pulmonology was consulted. Dr. Chad Greenfield, Neurology was consulted. Dr. Stefano Ibanez, Cardiovascular Surgery was consulted. Brain CT revealed no acute change except for the punctate lesions in her head consistent with a diagnosis of multiple myeloma. She was seen by Dr. Greenfield. He thought she might have had left hemiparesis on exam. Carotid Doppler revealed stenosis of the left internal carotid artery. Echocardiogram, EF 60% to 65%. CT [place], acute right middle cerebral artery distribution infarction, occlusion of the left common carotid artery, right patent internal carotid artery. The patient was treated. Today, Dr. Ibanez's progress note, Dr. Cabrera's note of event on 06/12 noted his consult to Dr. Ibanez. She was seen by Dr. Marie today. Decision was made to transfer the patient to Palliative Care and elective extubation. Followup will be per inpatient hospice. No procedures were done. Job ID: [id number]
--- NOTE | 2020-06-13 15:55 | CT ---
PRELIMINARY REPORT/[facility]/EMERGENCY AFTER HOURS PROCEDURE This report was discussed with Sarabjit Davis MD by Killian Morfin on Jun 13, 2020 04:26:00 CS T. Addendum electronically signed by Killian Morfin on June 13, 2020 4:26:28 AM CLINICAL DATA ABSTRACTOR EXAM: CTA Head and Neck with Intravenous Contrast. CT Head without Contrast. CLINICAL HISTORY: F/U ACUTE CVA TECHNIQUE: Axial CTA images of the head and neck performed with intravenous contrast. MIP reconstructed images w ere created and reviewed. Axial computed tomography images of the head/brain performed without intravenous contrast. Note: Per PQRS, the description of internal carotid artery percent stenosis, including 0 percent or n ormal exam, is based on [place] Symptomatic Carotid Endarterectomy Trial (NASCET) criteria. CONTRAST: With; ISOVUE 370,100mL COMPARISON: None provided. FINDINGS: CT HEAD: BRAIN: Hypodensity in the right MCA territory is compatible with evolution of acute infarct. VENTRICLES: No hydrocephalus. ORBITS: The orbits are unremarkable. SINUSES AND MASTOIDS: The paranasal sinuses and mastoid air cells are clear. CTA NECK: Filling defect in the brachiocephalic artery. COMMON CAROTID ARTERIES Occlusion of the left common carotid artery. INTERNAL CAROTID ARTERIES No stenosis by NASCET criteria. No dissection or occlusion. Left internal and external carotid arteries are patent from the level of the bifurcation. Calcified a nd noncalcified plaque at the bifurcation. ' VERTEBRAL ARTERIES No significant stenosis. No dissection or occlusion. CTA HEAD: ANTERIOR CEREBRAL ARTERIES No significant stenosis. No occlusion. No aneurysm. MIDDLE CEREBRAL ARTERIES Occlusion of the superior branch of the right MCA artery from its origin at the right MCA bifurcation . POSTERIOR CEREBRAL ARTERIES No significant stenosis. No occlusion. No aneurysm. BASILAR ARTERY No significant stenosis. No occlusion. No aneurysm. OTHER: SOFT TISSUES Spiculated nodule at the left lung apex measuring up to 1.5 cm. Multiple additional nodules at the bilateral lung apices to size up to 8 mm as well as reticulonodula r and multiple micronodules. Findings may be neoplastic and/or infectious. BONES No acute osseous abnormality. Again noted are multiple calvarial lucencies. MISCELLANEOUS: Endotracheal and enteric tubes in place. IMPRESSION: Hypodensity in the right MCA territory is compatible with evolution of acute infarct. Occlusion of the superior branch of the right MCA artery from its origin at the right MCA bifurcation . Filling defect in the brachiocephalic artery compatible with thrombus. Thrombus occludes the left co mmon carotid artery with a patent internal and external carotid arteries. Spiculated nodule at the left lung apex measuring up to 1.5 cm. Multiple additional nodules at the b ilateral lung apices to size up to 8 mm as well as reticulonodular and multiple micronodules. Findings may be neoplastic and/or infectious. Again noted are multiple calvarial lucencies which may be neoplastic in origin.. ELECTRONICALLY SIGNED BY: Kimberly Lopez MD Jun 13, 2020 4:18:32 AM CLINICAL DATA ABSTRACTOR This report is intended for review by the ordering physician only, in accordance of law. If you recei ve this report in error, please call [facility] at [phone]. FINAL REPORT Emergent after hours CT angiogram head and neck with IV contrast and 3-D reconstructions Emergent after hours noncontrast CT head HISTORY: Follow-up acute CVA. COMPARISON: Noncontrast CT head 06/12/2020. IMPRESSION: 1. Acute right MCA distribution infarction. 2. Acute infarction in the watershed distribution of the left MCA/INFRASTRUCTURE TECHNICIAN. 3. No intraparenchymal or extra-axial hemorrhage. 4. The aortic arch and origin of the great vessels was not imaged on this examination. 5. Thrombus in the visualized innominate artery with extension of thrombus into the most proximal rig ht subclavian artery. 6. Occlusion of the left common carotid artery. 7. Atherosclerotic irregularity at the carotid artery bifurcation on the left, but there is opacifica tion of the left internal and external carotid arteries without extension of the thrombus into the left internal carotid artery. 8. Patent right internal carotid artery. 9. Occlusion of the M2 branch right middle cerebral artery. 10. Patent bilateral anterior cerebral arteries and left middle cerebral artery. 11. Left vertebral artery is dominant, but the vertebral arteries are patent bilaterally. The basilar artery and posterior cerebral arteries are patent. 12. Patchy parenchymal densities within the lungs bilaterally with several nodular densities within t he left upper lobe including a spiculated nodule in the left lung apex measuring 1.4 cm. Findings could be related to infectious or neoplastic process. 13. Several lytic lesion within the calvarium likely related to patient's history of multiple myeloma . 14. Endotracheal tube and nasogastric tube are noted in place and partially imaged. 15. Small air-fluid level right maxillary antrum. Findings are in agreement with preliminary report by [facility]. Transcribed Date/Time: 06/13/2020 3:54 PM
[2020-06-13 16:20] VITALS: TEMP 100.1
--- NOTE | 2020-06-13 21:38 | PRG ---
DATE OF SERVICE: 06/13/2020 Ms. Grijalva condition seems to have deteriorated. She is much less responsive than she was yesterday. She does not open her eyes spontaneously to stimulation. She is still breathing over the ventilator. Vital signs have otherwise been stable. The family is leaning towards comfort care only. I had a discussion with her and family about the prognosis for her condition. I have explained to them that it is fairly extensive stroke of the right side of the brain, and she will likely be debilitated with a feeding tube for the remainder of life. They are in favor of comfort measures and moving forward. Job ID: [id number]
--- NOTE | 2020-06-14 02:11 | HP ---
CHIEF COMPLAINT: CVA/hospice care. HISTORY OF PRESENT ILLNESS: Ms. Barton is an 85-year-old female, who was hospitalized starting 06/12/2020. found her unresponsive in the restroom. Presented to the hospital. Found to be in acute respiratory failure and intubated. Diagnosis is CVA. Left carotid thrombosis. Right MCA distribution CVA with left-sided weakness. Son is in the room. She is not responsive. History obtained from family and review of records. She was extubated today at 1710 hours. She has shallow respirations. Hospice per family request. PAST MEDICAL HISTORY: 1. Hypertension. 2. Multiple myeloma. 3. Hypothyroidism. 4. Cognitive impairment. PAST SURGICAL HISTORY: Cholecystectomy. FAMILY HISTORY: Noncontributory. SOCIAL HISTORY: No tobacco, alcohol, or drug use. ALLERGIES: PENICILLIN. MEDICATIONS: Reviewed medical records. PHYSICAL EXAMINATION: VITAL SIGNS: On chart, reviewed. HEENT: Normocephalic, atraumatic. Oral mucosa dry. Oxygen is in place. LUNGS: Shallow respirations. Coarse breath sounds. HEART: Regular rate and rhythm. ABDOMEN: Soft, nontender, and nondistended. Normoactive bowel sounds. : King is in place. EXTREMITIES: No edema. PSYCH: Not responsive. ASSESSMENT AND PLAN: Cerebrovascular accident with acute respiratory failure: Did not respond to cerebrovascular accident management. Family opted for hospice. Terminally extubated at 1710 hours on 06/13/2020. Respirations were shallow and she is comfortable. I will follow along with Hospice. Job ID: [id number]
--- NOTE | 2020-06-14 19:24 | PRG ---
DATE OF SERVICE: 06/14/2020 SUBJECTIVE: Grandson and in the room. She is nonresponsive. Shallow respirations. No discomfort. OBJECTIVE: VITAL SIGNS: Reviewed. HEENT: Normocephalic, atraumatic. Oral mucosa moist. LUNGS: Clear to auscultation bilaterally. HEART: Tachycardic. EXTREMITIES: No edema. : King is in place. Minimal urine. ASSESSMENT AND PLAN: Cerebrovascular accident: Extubated on 06/12/2020 at 1710. Condition is terminal. No oral intake. She is comfortable. She requires inpatient hospice for medication management. I will continue to follow. Job ID: [id number]
--- NOTE | 2020-06-15 18:44 | PRG ---
DATE OF SERVICE: 06/15/2020 SUBJECTIVE: She is in bed, not responsive. Shallow respirations. is at bedside. He voices no concerns. She is not in discomfort. OBJECTIVE: VITAL SIGNS: Reviewed. HEENT: Normocephalic, atraumatic. Oral mucosa is moist. LUNGS: Shallow breath sounds, but clear to auscultation. HEART: Tachycardic. ABDOMEN: Soft and nondistended. Normoactive bowel sounds. EXTREMITIES: No edema. GENITOURINARY: King is in place. PSYCHIATRIC: Not responsive. ASSESSMENT AND PLAN: Cerebrovascular accident: Now on hospice per family request after she was terminally extubated on 06/12/2020 at 1710 hours. She is comfortable. Respirations are shallow. She is terminal. The patient needs hospice due to medication management and nursing care. Job ID: [id number]
--- NOTE | 2020-06-16 16:51 | PRG ---
DATE OF SERVICE: 06/16/2020 SUBJECTIVE: Ms. Barton is in bed. She is not responsive. Shallow respirations. Daughter and in the room. No concerns. OBJECTIVE: VITAL SIGNS: Reviewed. HEENT: Normocephalic, atraumatic. Oral mucosa moist. LUNGS: Shallow respirations. Diminished breath sounds involving lower lung espinal. Clear to auscultation otherwise. HEART: Regular rate and rhythm. ABDOMEN: Hypoactive bowel sounds. Soft, nondistended. EXTREMITIES: No edema. : King is in place. Minimal urine PSYCHIATRIC: Not responsive. ASSESSMENT AND PLAN: Cerebrovascular accident: Extubated on 06/12/2020 at 5:10 p.m. No oral intake and not responsive. On hospitalist service for nursing management and medication management. We will continue to follow since condition is terminal. Job ID: [id number]
== END 2020-06-13 16:32 | disposition hospice, inpatient (51) | DRG 64 ==
LOC: ERS 05:47 → CCU 07:36
PROVIDERS: ADMIT Internal Medicine; ATTEND Internal Medicine
PROC: 0BH17EZ Insertion of Endotracheal Airway into Trachea, Via Natural or Artificial Opening (ICD-10-PCS; principal; 2020-06-12)
PROC: 5A1935Z Respiratory Ventilation, Less than 24 Consecutive Hours (ICD-10-PCS; 2020-06-12)
DX: I63.511 Cerebral infarction due to unspecified occlusion or stenosis of right middle cerebral artery (principal); J96.01 Acute respiratory failure with hypoxia; I21.A1 Myocardial infarction type 2; E87.2 Acidosis; C90.00 Multiple myeloma not having achieved remission; G93.40 Encephalopathy, unspecified; G81.94 Hemiplegia, unspecified affecting left nondominant side; Z51.5 Encounter for palliative care; Z20.828 Contact with and (suspected) exposure to other viral communicable diseases; I65.22 Occlusion and stenosis of left carotid artery; G30.9 Alzheimer's disease, unspecified; F02.80 Dementia in other diseases classified elsewhere, unspecified severity, without behavioral disturbance, psychotic disturbance, mood disturbance, and anxiety; I12.9 Hypertensive chronic kidney disease with stage 1 through stage 4 chronic kidney disease, or unspecified chronic kidney disease; E86.0 Dehydration; D53.9 Nutritional anemia, unspecified; E03.9 Hypothyroidism, unspecified; N18.2 Chronic kidney disease, stage 2 (mild); Z78.1 Physical restraint status; Z88.0 Allergy status to penicillin; Z90.49 Acquired absence of other specified parts of digestive tract; Z79.890 Hormone replacement therapy; Z79.52 Long term (current) use of systemic steroids; Z79.899 Other long term (current) drug therapy
CPT/HCPCS: 36415; 36416; 36600; 70450; 70496; 70498; 71045; 80048; 80053; 80061; 80306; 80307; 81003; 81015; 82533; 82550; 82553; 82607; 82746; 82805; 83605; 83690; 83735; 83880; 84100; 84443; 84484; 85025; 85610; 85730; 86140; 87040; 87086; 93005; 93306; 93880; 94002; 94003; J0692; J1650; J1956; J2060; J2250; J2270; J2704; J3010; J3370; J3420; J3490; J7050; J7070; Q9967; U0002

== ENCOUNTER 2020-06-13 16:37 | Inpatient (IN) | payer OTHER ==
[2020-06-13] MEDS ORDERED: Lorazepam 2 MG/ML VIAL SLOW IVP PRN (16:42)
[2020-06-13] MEDS ORDERED: Morphine 4 MG/ML VIAL SLOW IVP PRN (16:42)
[2020-06-13] MEDS ORDERED: Scopolamine 1.5 mg/72 hour Patch TOP PRN (16:43)
[2020-06-13] MEDS ORDERED: Ondansetron PF 4 MG/2 ML Vial IVP PRN (16:44)
[2020-06-13] MEDS ORDERED: Morphine 4 MG/ML VIAL SLOW IVP SCH (16:45)
[2020-06-13] MEDS ORDERED: Lorazepam 2 MG/ML VIAL SLOW IVP SCH (16:45)
[2020-06-13] MEDS: Lorazepam 2 MG/ML VIAL SLOW IVP SCH ×3 (18:20→22:36)
[2020-06-13] MEDS: Morphine 2 MG/ML VIAL SLOW IVP SCH ×3 (18:20→22:36)
[2020-06-14] MEDS: Morphine 2 MG/ML VIAL SLOW IVP SCH ×12 (00:30→22:00)
[2020-06-14] MEDS: Lorazepam 2 MG/ML VIAL SLOW IVP SCH ×12 (00:31→22:01)
[2020-06-15] MEDS: Morphine 2 MG/ML VIAL SLOW IVP SCH ×10 (00:03→23:10)
[2020-06-15] MEDS: Lorazepam 2 MG/ML VIAL SLOW IVP SCH ×10 (00:03→23:10)
[2020-06-16] MEDS: Lorazepam 2 MG/ML VIAL SLOW IVP SCH ×12 (00:39→22:53)
[2020-06-16] MEDS: Morphine 2 MG/ML VIAL SLOW IVP SCH ×12 (00:39→22:53)
[2020-06-17] MEDS: Lorazepam 2 MG/ML VIAL SLOW IVP SCH ×9 (00:14→14:49)
[2020-06-17] MEDS: Morphine 2 MG/ML VIAL SLOW IVP SCH ×9 (00:14→14:49)
[2020-06-17 12:49] VITALS: BP 92/59; TEMP 97.8
[2020-06-17] MEDS: Haloperidol Lactate 2 MG/ML UDCUP PO SCH ×2 (16:39→18:50)
[2020-06-17] MEDS: Morphine 10 MG/0.5 ML ORAL SYRINGE SL SCH ×2 (16:40→18:42)
== END 2020-06-17 21:40 | disposition expired | DRG 951 ==
LOC: CCU 16:37 → SURG A 18:42
PROVIDERS: ADMIT Family Medicine; ATTEND Internal Medicine
DX: Z51.5 Encounter for palliative care (principal); I63.9 Cerebral infarction, unspecified; J96.00 Acute respiratory failure, unspecified whether with hypoxia or hypercapnia; G81.94 Hemiplegia, unspecified affecting left nondominant side; I10 Essential (primary) hypertension; E03.9 Hypothyroidism, unspecified; Z90.49 Acquired absence of other specified parts of digestive tract
CPT/HCPCS: J2060; J2270